=== PATIENT | male | born 1970 | race Caucasian/White ===

== ENCOUNTER 2017-04-11 06:51 | Emergency (ER) | payer OTHER | END 2017-04-11 07:00 | disposition left against medical advice (07) | LOC: SED 06:51 | DX: Z53.20 Procedure and treatment not carried out because of patient's decision for unspecified reasons (principal) ==

== ENCOUNTER → 2017-05-21 | Day surgery (SDC) | payer OTHER ==
[~2017-05-21] VITALS: Ht 165.1 cm; Wt 64.5 kg
[2017-05-21] VITALS (8 sets, daily range): BP systolic 116–144; BP diastolic 80–88; PULSE 62–102; RESP 13–18; O2SAT 95–100
[~2017-05-21] MED LIST: Atropine 0.4 mg/mL Inj IVPUSH PRN; Bupivacaine-MPF 0.5% W/EPI 30 mL Inj INJ ONE; Dexamethasone 4 mg/mL Inj ONE; EPHEDrine Sulfate 50 mg/mL Inj IVPUSH PRN; HYDROmorphone 1 mg/mL Inj IVPUSH PRN; LISI1TAB11 PO; Labetalol 5 mg/mL 4 mL Inj IV PRN; Lactated Ringer's 1,000 ML IV ONE; Lactated Ringer's 1,000 ML IV SCH; Lactated Ringer's 500 ML IV PRN; MetoCLOpramide 5 mg/mL 2 mL Inj IVPUSH PRN; Ondansetron 2 mg/mL 2 mL Inj IVPUSH PRN; Ondansetron 2 mg/mL 2 mL Inj ONE; Phenylephrine 10,000 mCg/mL Inj IVPUSH PRN; Propofol 10,000 mCg/mL 20 mL Inj ONE; RANI-426 PO; RANI150C4 PO; fentaNYL-PF 50 mCg/mL 2 mL Inj IVPUSH PRN; fentaNYL-PF 50 mCg/mL 2 mL Inj ONE
[2017-05-21] MEDS: CeFAZolin Inj 2 GM in IV Premix 1 EACH IV ONE ×2 (12:09→12:45)
--- NOTE | 2017-05-21 12:28 | PCM.HPANE ---
Patient Data Surgeon Admitting Provider: Attending Provider:Miguel Hernandez MD Primary Care Physician:Tadeo Cloud DO Other Provider:Rach Hernández Anesthesia Reason for Visit Left Inguinal Hernia Ht/WT & BMI Height (Feet): 5 Height (Inches): 5 Weight (Kilograms): 64.5 Body Mass Index 23.00 Allergies Coded Allergies: No Known Allergies (Unverified , 05/18/17) Past Anesthesia History Anesthesia History: Denies:: Abnormal Airway, Anesthesia Reactions, Difficult Intubation, Fam Anesthesia Reaction, Fam Malignant Hypertherm, Malignant Hyperthermia Diabetes History Hx Diabetes?: No MRSA MRSA: No Medications Home Meds Incl Beta Jose: No Reported Medications Ranitidine 150 Mg [id number] Mg PO BID Ref 0 05/21/17 Lisinopril / HCTZ 20-25 mg 1 Each Tablet1 Each PO DAILY Ref 0 05/17/17 Discontinued Reported Medications Ranitidine 75 Mg [id number] Mg PO BID 05/17/17 History History of ENT Problems?: No HEENT History: Denies:: Abnormal Airway Cataracts Difficult Intubation Dysphagia Glaucoma Hearing Problem Sinus Problem TMJ Denture Type: None Teeth Condition: Within Normal Limits Hx of Heart Problems?: Yes Cardiovascular History: Positive for:: Hypertension Denies:: Abdominal Aortic Aneurism Atrial Fibrillation Cardiac Surgery Chest Pain Congestive Heart Failure Coronary Artery Disease Irregular Heartbeat Rheumatic Fever Valvular Heart Disease Hx of Respiratory Problem?: No Respiratory History: Denies:: Dyspnea Pneumonia Pulmonary Embolism Hx Neurologic Problems?: No Hx of GI Problems?: No Hx of Problems?: No Male Hx: Denies:: Prostate Problems Scrotal Mass Testicular Surgery Skin History: Denies:: History Skin Disorders? Pressure Ulcers Hx Musculoskeletal Problems?: No Musculoskeletal History: Positive for:: Back Injury (T 1-5 compression fx 2007 ) Osteoarthritis Denies:: Degenerative Joint Fibromyalgia Joint Replacement Musculoskeletal Trauma Myasthenia Gravis Rheumatoid Arthritis Systemic Lupus Hx of Psycho/Social Problems?: No Hx Surgeries?: Yes (Carpal tunnel 02/05) Other History: Positive for:: Hospitalization ([facility] 2009) Denies:: Cancer Endocrine Disease Thyroid Disease History Blood Transfusions: Positive for:: Accept Blood Products? Denies:: Blood Transfusions Hx Diabetes: No Hx Alcohol Use: No (Stopped Nov 2016)Hx Substance Use: Yes Stop/Bang S-Snoring: Do You Snore Loudly: No T-Tired: feel tired, fatigued: No O-Obsered: Observed not breath: No P-Blood Pressure: treated: Yes B- Body Mass Index > 35 kg/m2: No A- Age over 50: No N- Neck Large Circumference: No G- Gender Male: Yes ODALIS Total Score: 2 Risk Assessment Category Category 1A: Patient has history of documented sleep apnea, and HAS NOT received any narcotic, sedative or anesthesia administration during this stay. Category 1B: Patient has history of documented sleep apnea, and HAS received any narcotic , sedative or anesthesia administration during this stay Category 2: Patient has SUSPECTED Obstructive Sleep Apnea, and HAS received any narcotic , sedative or anesthesia administration during this stay. Category 3: Patient has SUSPECTED Obstructive Sleep Apnea and HAS NOT received narcotic, sedative or anesthesia administration during this stay. Category 4: Outpatient in Procedural Areas with known sleep apnea or who screen positive for High Risk via the STOP/BANG questionnaire. Exam Exam Vital Signs Vital Signs Date Time Temp Pulse Resp B/P Pulse Ox O2 Delivery O2 Flow Rate FiO2 05/21/17 09:31 36.5 62 16 116/80 97 Room Air General Appearance: Alert, Oriented X3 HEENT/AIRWAY: MP 2, Neck Movement (FROM) Lungs: Clear to Auscultation, Clear to Percussion Heart: Exam Unremarkable, Regular Rate/Rhythm Meds/Labs/Diagnostics Admission Meds Current Medications Lactated Ringer's (Lr) 1,000 ml @ 120 mls/hr [id number] ONCE IV Last administered on 05/21/17t 09:21; Start 05/21/17 at 05:00; Stop 05/21/17 at 13:19 Plan Impression Patient chart reviewed, patient interviewed and anesthestic plan with risks, benefits, and alternatives discussed, and informed consent obtained. ASA Physical Status: ASA2 Mod Systemic Disease Anesthetic Plan: GA Bene/Risks/Altern/Consents: Yes HP Complete Prior to Induction: Yes Paddy Mercedes MD May 21, 2017 10:58
--- NOTE | 2017-05-21 13:12 | PCM.SURGOP ---
Surgical Operative Report Date of Service: May 21, 2017 Pre Operative Diagnosis Left inguinal hernia Post Operative Diagnosis Indirect left inguinal hernia Procedure: Left inguinal hernia repair with mesh Surgeon and Marker Machine: Surgeon: Miguel Hernandez MD Assistants: Chris Nick MD PGY-3 Indication for Procedure 46-year-old man who has had an enlarging left inguinal hernia for several years , which has become more symptomatic. It has always been reducible. After discussion of risks and benefits, he agreed to proceed with left inguinal hernia repair with mesh. Findings: There was an indirect left inguinal hernia. Procedure Details After smooth induction of general anesthesia with an LMA, the patient was placed in the supine position, and was prepped and draped in wide sterile fashion. A procedural pause was performed according to the SCOAP checklist, and all were found to be in agreement. A transverse incision was made in the skin lines in the left groin. Dissection was carried out with electrocautery through the subcutaneous tissue. The superficial inferior epigastric vein was cauterized and divided. Juni's fascia was divided. The external oblique fascia was skeletonized down to the external inguinal ring. The external oblique fascia was opened sharply, taking care to avoid injury to the ilioinguinal nerve. The nerve was dissected off the spermatic cord structures, and ultimately the decision was made to perform ilioinguinal neurectomy. The proximal end was ligated with a 3-0 Vicryl suture , and it was dissected free sharply. The spermatic cord contents were encircled with a Barry drain. The inguinal floor was inspected. It was slightly attenuated laterally, but there was no direct defect. The spermatic cord was explored. There was a hernia sac anteromedially, which was dissected off the cord structures. It was reduced through the deep inguinal ring. A repair was then performed using the Bard 3 x 6" polypropylene mesh, which was cut to size. It was secured to the pubic tubercle, the shelving edge of the ilioinguinal ligament, the conjoined tendon. A slit was cut in the mesh to allow passage of the spermatic cord. The external oblique fascia was then closed over the mesh using a running 3-0 Vicryl suture. Juni's fascia was closed with an interrupted 3-0 Vicryl suture. The skin incision was closed with a running 4-0 Monocryl subcuticular stitch. Steri-Strips and sterile dressings were applied. At the end the case all needle and sponge counts were correct 2. The patient was awakened from anesthesia without difficulty, and taken to the recovery room in satisfactory condition, having tolerated the procedure well. Complications There were no periprocedural complications identified. Surgical Specimen Removed: No Specimen sent to Pathology: Not applicable Anesthetic Plan: GA Grafts, Implants: Implants-See Implant Record Output, Estimated Blood Loss: 10 Blood Administration during urbina: No Drains: None Catheters: None copies to: Joon Boss MD, Joshua D MD May 21, 2017 13:12
--- NOTE | 2017-05-21 13:42 | PCM.DISURG ---
Surgical Discharge Instruction Date of Service May 21, 2017 Dates of Hospitalization Date of Hospital Admission Providers Admitting Physician: Primary Care Physician: Tadeo Cloud DO Attending Physician: Miguel Hernandez MD Discharge Diagnosis Post Operative diagnosis Indirect left inguinal hernia Diet Discharge Diet: No restrictions Activity Discharge Activity-General: Try not to overdue, Activity as pain allows, No lifting >15 pounds for 2 weeks, No driving while taking narcotic Dressing and Incisional Care Dressing Care: Allow Steri Stripes to fall off, Remove outer dressing after 24 hrs Hygiene: May shower after (24 hours), DO NOT soak incision under water, NO bathtub, hot tub or whirlpool Follow Up Plan Follow Up Plan Follow up in the general surgery clinic in 2-4 weeks. Call at any time with questions or concerns. Call your provider for: Fever, Chills, Increasing abdominal pain, Wound redness , Increasing wound pain, Discharge @ incision, pus discharge Satinder Nick MD May 21, 2017 13:42
--- NOTE | 2017-05-21 13:47 | PCM.ANEP1 ---
Post Anesthesia PACU Phase 1 Assessment Vital Signs Vital Signs Date Time Temp Pulse Resp B/P Pulse Ox O2 Delivery O2 Flow Rate FiO2 05/21/17 13:40 102 15 131/81 97 Room Air 05/21/17 13:35 96 15 127/80 97 Room Air 05/21/17 13:30 94 15 142/81 96 Room Air 05/21/17 13:25 36.5 86 13 143/85 100 Simple Mask 8 05/21/17 09:31 36.5 62 16 116/80 97 Room Air Anesthetic Administered: GA Level of Alertness: Awake, talking LANDRUM's with Equal Strength: Yes Pain: No Nausea or Vomiting: No CV Function & Hydration Stable: No Airway Device: Oxygen Delivery: Simple Mask Lungs: Clear to Auscultation, Clear to Percussion PACU Phase 2 Assessment Complications: No Follow up Care: No Patient Instructions Provided: N/A Paddy Mercedes MD May 21, 2017 13:47
[2017-05-21] MEDS: oxyCODONE-Acetamin 5-325 mg Tablet PO PRN ×2 (14:08→14:33)
== END | disposition home or self-care (01) ==
LOC: SAS 09:09
PROVIDERS: ATTEND Student in an Organized Health Care Education/Training Program
DX: K40.90 Unilateral inguinal hernia, without obstruction or gangrene, not specified as recurrent (principal); I10 Essential (primary) hypertension; K21.9 Gastro-esophageal reflux disease without esophagitis; M19.90 Unspecified osteoarthritis, unspecified site; Z87.81 Personal history of (healed) traumatic fracture
CPT/HCPCS: 49505; C1781; J0690; J1100; J2405; J3010; J7120